=== PATIENT | female | born 1995 | race Two or more races ===

== ENCOUNTER 2018-01-07 13:00 | Inpatient (IN) | payer MEDICAID ==
[~2018-01-07] VITALS: Ht 147.3 cm; Wt 49.6 kg
[2018-01-07] MEDS ORDERED: LACT. RINGERS/OXYTOCIN 20UNITS 1,000 ML IV SCH ×2 (13:13→17:32)
[2018-01-07] MEDS ORDERED: LIDOCAINE 2% (LOCAL ANESTH.) PF 5ml SDV ID PRN (13:15)
[2018-01-07] MEDS ORDERED: NALBUPHINE HCL 10 MG/1ml INJECTION IV PRN (13:15)
[2018-01-07] MEDS: LACTATED RINGER'S 1,000 ML IV SCH ×2 (13:24→15:20)
[2018-01-07] MEDS ORDERED: LIDOCAINE HCL 2 %PF INJ 10ML AMP IJ PRN (13:30)
[2018-01-07] MEDS ORDERED: fentaNYL CITRATE 100 MCG/2 ML VL IV ONE (13:30)
[2018-01-07] MEDS ORDERED: NALOXONE HCL 0.4 MG/ML VIAL IV ONE ×2 (13:30→16:00)
[2018-01-07] MEDS ORDERED: ePHEDrine SULFATE 50 MG/ML AMP IV ONE ×2 (13:30→16:00)
[2018-01-07] MEDS ORDERED: fentaNYL W ROPIVACAINE 150 ML EPI SCH ×2 (13:30→16:00)
[2018-01-07] MEDS ORDERED: PROMETHAZINE HCL 25 MG/ML 1ML IV PRN (13:45)
[2018-01-07 14:07] LABS: Basophils # (auto) 0.1 uL; Eosinophils # (auto) 0 uL; Hematocrit 29.9 % (36.0-46.0); Hemoglobin 9.5 g/dL (12.2-16.2); Monocytes # (auto) 0.6 uL; Red Cell Distribution Width 18.2 % (11.8-14.3)
[2018-01-07 14:08] LABS: Basophils % (auto) 1.1 % (0.0-2.0); Eosinophils % (auto) 0.4 % (0.0-7.0); Lymphocytes # (auto) 1.7 uL; Lymphocytes % (auto) 22.5 % (10.0-50.0); Mean Corpuscular Hgb Conc. 31.8 g/dL (32.0-36.0); Mean Corpuscular Volume 56.5 fL (80.0-100.0); Monocytes % (auto) 8.4 % (0.0-12.0); Neutrophils # (auto) 5.1 uL; Neutrophils % (auto) 67.6 % (37.0-80.0); Nucleated Red Blood Cells % 0.1 %; Platelet Count (auto) 160 10^3/uL (140-450); White Blood Cell 7.5 10^3/uL (4.4-10.8)
[2018-01-07] MEDS ORDERED: WITCH HAZEL-GLYCERIN PAD TOP PRN (14:15)
[2018-01-07] MEDS ORDERED: DERMOPLAST 60ML BOTTLE TOP PRN (14:15)
[2018-01-07] MEDS ORDERED: PHISODERM TOP SOLN 240ML BTL TOP PRN (14:15)
[2018-01-07 14:21] LABS: INR 0.89 (0.9-1.15); Partial Thromboplastin Time 26.5 sec (23.78-33.04); Prothrombin Time 9.6 sec (9.27-12.13)
[2018-01-07 14:23] LABS: Urine Bacteria FEW /hpf (None Seen); Urine Blood 2+ /uL (Negative); Urine Specific Gravity 1.018 (1.001-1.035); Urine WBC 6 /hpf (0 - 5)
[2018-01-07 14:27] LABS: Albumin 2.7 g/dL (3.4-5.0); BUN/Creatinine Ratio 13.9; Bilirubin, Total 0.4 mg/dL (0.2-1.0); Calcium 8.2 mg/dL (8.5-10.1); Potassium 3.8 mmol/L (3.5-5.1); Total Protein 6.1 g/dL (6.4-8.2)
[2018-01-07] MEDS ORDERED: PREN-96 PO (15:13)
[2018-01-07] MEDS ORDERED: SODIUM CHLORIDE 0.9% 500 ML IV PRN (15:47)
[2018-01-07] MEDS ORDERED: TERBUTALINE SULFATE 1 MG/ML 1ML VIAL SC ONE (17:45)
[2018-01-07] MEDS ORDERED: CARBOPROST TROMETHAMINE 250 MCG/1ML VIAL IM ONE (18:26)
[2018-01-07] MEDS ORDERED: METHYLERGONOVINE MALEATE 0.2 MG/ML AMP IM ONE (18:26)
[2018-01-07 22:15] VITALS: BP 112/59
[2018-01-07] MEDS ORDERED: TETANUS-DIPTH-ACEL PERTUSSIS 0.5ML SYRG IM ONE (22:15)
[2018-01-07] MEDS: IBUPROFEN 600 MG TAB PO PRN (22:51)
[2018-01-08] VITALS (7 sets, daily range): BP systolic 106–128; BP diastolic 67–81
[2018-01-08] MEDS: IBUPROFEN 600 MG TAB PO PRN ×3 (01:53→18:35)
[2018-01-08 06:49] LABS: Basophils # (auto) 0.1 uL; Basophils % (auto) 0.4 % (0.0-2.0); Eosinophils # (auto) 0 uL; Hemoglobin 8.9 g/dL (12.2-16.2); Lymphocytes # (auto) 2.4 uL; Mean Corpuscular Volume 56.6 fL (80.0-100.0); Neutrophils # (auto) 14.1 uL
[2018-01-08 06:52] LABS: Eosinophils % (auto) 0.2 % (0.0-7.0); Lymphocytes % (auto) 13.6 % (10.0-50.0); Mean Corpuscular Hemoglobin 17.9 pg (28.0-32.0); Mean Corpuscular Hgb Conc. 31.7 g/dL (32.0-36.0); Monocytes # (auto) 1.1 uL; Monocytes % (auto) 6.1 % (0.0-12.0); Neutrophils % (auto) 79.7 % (37.0-80.0); Platelet Count (auto) 148 10^3/uL (140-450); Red Blood Cells 4.94 10^6/uL (4.0-5.20); Red Cell Distribution Width 18.1 % (11.8-14.3); White Blood Cell 17.7 10^3/uL (4.4-10.8)
[2018-01-08 07:06] LABS: RPR Non Reactive (Non Reactive)
[2018-01-08] MEDS ORDERED: DOCUSATE CALCIUM 240 MG CAP PO SCH (10:00)
[2018-01-09 03:30] VITALS: BP 120/75
[2018-01-09 03:43] VITALS: BP 120/75
[2018-01-09] MEDS: IBUPROFEN 600 MG TAB PO PRN (04:05)
[2018-01-09] MEDS ORDERED: TETANUS-DIPTH-ACEL PERTUSSIS 0.5ML SYRG IM ONE (04:15)
[2018-01-09] MEDS ORDERED: ACETAMINOPHEN 325 MG TAB PO PRN (05:45)
[2018-01-09 07:05] VITALS: BP 114/58
== END 2018-01-09 09:05 | disposition home or self-care (01) | DRG 560 ==
LOC: LDRP 13:00 → OBSVTOIN 13:08
PROVIDERS: ADMIT Specialist; ATTEND Specialist
PROC: 10E0XZZ Delivery of Products of Conception, External Approach (ICD-10-PCS; principal; 2018-01-07)
PROC: 3E0R3BZ Introduction of Anesthetic Agent into Spinal Canal, Percutaneous Approach (ICD-10-PCS; 2018-01-07)
PROC: 00HU33Z Insertion of Infusion Device into Spinal Canal, Percutaneous Approach (ICD-10-PCS; 2018-01-07)
DX: O34.43 Maternal care for other abnormalities of cervix, third trimester (principal); O42.02 Full-term premature rupture of membranes, onset of labor within 24 hours of rupture; R87.612 Low grade squamous intraepithelial lesion on cytologic smear of cervix (LGSIL); Z37.0 Single live birth; Z3A.39 39 weeks gestation of pregnancy
CPT/HCPCS: 36415; 59025; 59409; 62282; 80053; 81001; 81002; 85025; 85610; 85730; 86592; 86850; 86900; 86901; 90715; 96365; 96366; 96372; 96374; 96375; G0378; J2001; J2590; J3010

== ENCOUNTER 2025-01-27 09:51 | Outpatient (CLI) | payer MEDICAID ==
[~2025-01-27 09:51] MED LIST: PREN-96 PO
== END 2025-01-27 17:00 | disposition home or self-care (01) ==
LOC: LAB 09:51
PROVIDERS: ATTEND Obstetrics & Gynecology
DX: O03.9 Complete or unspecified spontaneous abortion without complication (principal)
CPT/HCPCS: 36415; 84144; 84702

== ENCOUNTER → 2025-01-29 | Outpatient (CLI) | payer MEDICAID | END | disposition home or self-care (01) | LOC: LAB 09:53 | PROVIDERS: ATTEND Obstetrics & Gynecology | DX: O03.9 Complete or unspecified spontaneous abortion without complication (principal) | CPT/HCPCS: 36415; 84144; 84702 ==

== ENCOUNTER 2025-02-02 14:47 | Outpatient (CLI) | payer MEDICAID | END 2025-02-02 17:00 | disposition home or self-care (01) | LOC: LAB 14:47 | PROVIDERS: ATTEND Obstetrics & Gynecology | DX: Z34.80 Encounter for supervision of other normal pregnancy, unspecified trimester (principal); Z3A.00 Weeks of gestation of pregnancy not specified | CPT/HCPCS: 36415; 84144; 84702 ==

== ENCOUNTER 2025-02-04 13:01 | Outpatient (CLI) | payer MEDICAID | END 2025-02-04 17:00 | disposition home or self-care (01) | LOC: LAB 13:01 | PROVIDERS: ATTEND Obstetrics & Gynecology | DX: Z34.80 Encounter for supervision of other normal pregnancy, unspecified trimester (principal); Z3A.00 Weeks of gestation of pregnancy not specified | CPT/HCPCS: 36415; 84702 ==